=== PATIENT | female | born 1965 | race Caucasian/White ===

== ENCOUNTER 2016-12-04 09:17 | Emergency (ER) | payer BC ==
[~2016-12-04 09:17] MED LIST: ALBUTEROL17 GM INH; AMETHIA 0.15-01 EAC1 PO; ANTIVERT12.5 MG PO; CYCLOBENZAPRINE10 MG PO; FLAXSEED OIL1000 MG PO; GLYCOPYRROLATE2 MG PO; HYDROCODON-ACE1 EA15 PO; HYDROXYZINE HCL25 MG PO; LEVOFLOXACIN500 MG PO; LEVOTHROID25 MCG PO; OMEPRAZOLE20 M2 PO; OMEPRAZOLE20 MG PO; ORAL BIRTH CONTROL; PRISTIQ ER50 MG PO; PRISTIQ50 MG PO; SEASONIQUE1 BLIST PA PO; SIMVASTATIN10 MG PO; SYNTHROID; SYNTHROID150 MCG PO; TESSALON200 MG PO; TRIAMTERENE-HCT1 CAP PO; TRIAMTERENE/HYDR1 EA PO; VALIUM2 MG PO; WELLBUTRIN; XANAX0.5 M1 PO; [UNRECOGNIZED DRUG - REMARK]
[2016-12-04] MEDS ORDERED: LIOTHYRONINE SO5 MC1 PO (11:27)
[2016-12-04] MEDS ORDERED: LUNESTA1 M1 PO (11:27)
[2016-12-04] MEDS ORDERED: SYNTHROID112 MC1 PO (11:28)
[2016-12-04] MEDS ORDERED: OXCARBAZEPINE300 M1 PO (11:29)
[2016-12-04] MEDS ORDERED: SINGULAIR10 M1 PO (11:30)
[2016-12-04] MEDS ORDERED: LEVAQUIN500 M1 PO (11:30)
[2016-12-04] MEDS ORDERED: [UNRECOGNIZED DRUG - OTHER] PO (11:30)
[2016-12-04] MEDS ORDERED: SYMBICORT 160-1 PUFF INH (11:30)
[2016-12-04] MEDS ORDERED: ROSUVASTATIN CAL5 MG PO (11:31)
[2016-12-04] MEDS ORDERED: ZOFRAN4 M2 PO (11:32)
[2016-12-04] MEDS ORDERED: LOSARTAN-HCTZ1 EAC5 PO (11:32)
[2016-12-04 12:01] LABS: BASO % 0.4 % (0-2); EOS % 1.4 % (0-7); EOSINOPHIL ABSOLUTE COUNT 0.1 tho/cmm (0.0-0.7); HCT-HEMATOCRIT 38.2 % (34.0-49.0); HGB-HEMOGLOBIN 12.5 gm/dl (12.0-15.5); IMMATURE GRANULOCYTES ABSOLUTE 0.02 tho/cmm (0-0.03); IMMATURE GRANULOCYTES PERCENT 0.2 % (0-0.3); LYMPH % 36.2 % (20-45); LYMPH ABSOLUTE COUNT 3.1 tho/cmm (0.8-4.5); MCH (MEAN CORPUSCULAR HGB) 27.8 pg (28.0-32.0); MCHC MEAN CORPUSCULAR HGB CONC 32.7 % (32.0-36.0); MCV (MEAN CELL VOLUME) 85.1 fl (82.0-96.0); MEAN PLATELET VOLUME 9.6 cmc (9.4-12.4); MONO % 11.5 % (0-12); NEUTROPHIL ABSOLUTE COUNT 4.3 tho/cmm (1.6-8.0); NEUTROPHIL-AUTOMATED 4.3 tho/cmm (1.6-8.0); NEUTROPHILS % 50.3 % (40-80); PLATELET COUNT 432 tho/cmm (150-450); RED BLOOD COUNT 4.49 mil/cmm (4.00-5.20); RED CELL DISTRIBUTION WIDTH 15.2 % (12.4-16.4); WHITE BLOOD COUNT 8.5 tho/cmm (4.0-10.0)
[2016-12-04 12:19] LABS: ALB/GLOB RATIO 0.8 (0.8-2.0); ALBUMIN 3.3 g/dl (3.5-5.0); ALKALINE PHOSPHATASE 95 U/L (33-138); ALT/SGPT 24 U/L (12-78); ANION GAP 12 mmol/L (0-20); AST/SGOT 22 U/L (10-40); BILIRUBIN,TOTAL 0.2 mg/dl (0-1.5); BLOOD UREA NITROGEN 12 mg/dl (6-24); CALCIUM 8.4 mg/dl (8.5-10.5); CARBON DIOXIDE-VENOUS 28 mmol/L (22-32); CHLORIDE 102 mmol/l (96-110); CREATININE 0.65 mg/dl (0.50-1.10); GLUCOSE 100 mg/dL (70-110); LIPASE 75 U/L (73-393); POTASSIUM 4.2 mmol/L (3.7-5.1); SODIUM 138 mmol/L (135-145); eGFR VALUE FOR BLACK >90 mL/Min
[2016-12-04 12:27] LABS: PREGNANCY-SERUM NEGATIVE (NEGATIVE)
[2016-12-04 13:18] LABS: URINE BILIRUBIN NEGATIVE (NEG); URINE BLOOD SMALL (NEG); URINE GLUCOSE (UA) NEGATIVE (NEG); URINE KETONE NEGATIVE (NEG); URINE LEUKOCYTE ESTERASE POSITIVE (NEG); URINE NITRITE NEGATIVE (NEG); URINE PH 6.5 (5.0-8.0); URINE PROTEIN SMALL (NEG)
[2016-12-04 13:20] LABS: URINE APPEARANCE HAZY; URINE COLOR YELLOW
[2016-12-04 13:43] LABS: URINE EPITHELIAL CELLS 60-70 /[HPF] (0-10)
[2016-12-04 13:44] LABS: URINE BACTERIA 1+
[2016-12-04 13:46] LABS: URINE RBC 0-1 /[HPF] (0-5)
[2016-12-04] MEDS ORDERED: PERCOCET 5-3251 EACH PO (14:09)
[2016-12-04] MEDS ORDERED: PROTONIX40 M2 PO (14:09)
[2016-12-04] MEDS ORDERED: REGLAN10 M2 PO (14:09)
[2016-12-04] MEDS ORDERED: CARAFATE1 G2 PO (14:09)
== END 2016-12-04 14:16 ==
LOC: EDMED 09:17
PROVIDERS: Emergency Medicine
DX: K21.9 Gastro-esophageal reflux disease without esophagitis (principal); R10.9 Unspecified abdominal pain; R11.2 Nausea with vomiting, unspecified
CPT/HCPCS: C9113; J1170; J2405; J7030; Q9967